=== PATIENT | female | born 2000 | race Caucasian/White ===

== ENCOUNTER 2019-04-06 03:50 | Emergency (ER) | payer OTHER ==
[~2019-04-06] VITALS: Ht 152.4 cm; Wt 59.0 kg
[2019-04-06 04:05] VITALS: BP 107/67
--- NOTE | 2019-04-06 04:05 | NUR ---
PT TAKEN TO BED 4
[2019-04-06 04:08] VITALS: BP 107/67
--- NOTE | 2019-04-06 04:08 | NUR ---
18 Y/O F PRESENTED TO ED WITH C/O BLE ACHES. STARTED 04/05/19 AT 1900. 05/23 PAIN, ACHING AND INTERMINTENT. PAIN STARTS IN FEET AND RADIATES TO SHINS. PER PT EXPERIENCED SYMPTOMS BEFORE BUT TODAY WAS UNBEARABLE. FAMILY AT BEDSIDE. ERMD MADE AWARE. WILL CONTINUE TO MONITOR.
--- NOTE | 2019-04-06 04:18 | NUR ---
Dr. Merino evaluating patient at bedside.
== END 2019-04-06 05:05 | disposition home or self-care (01) ==
LOC: MED 03:50
DX: M79.10 Myalgia, unspecified site (principal)
CPT/HCPCS: 73630; 99283; Q0092